=== PATIENT | female | born 1955 | race Caucasian/White ===

== ENCOUNTER 2022-11-21 13:11 | Emergency (ER) | payer OTHER ==
[~2022-11-21] VITALS: Wt 157.5 kg
[~2022-11-21 13:11] MED LIST: ACETAMINOPHEN325 M2 PO; ALBUTEROL0.63 MG/3 INH; ANTIFUNGAL POWD85 G1 T; ARTIFICIAL TEAR1512 OP; BISACODYL10 MG R; CELEXA20 MG PO; ERTAPENEM1 GM IV; FLEET ENEMA EX230 M1 R; JARDIANCE25 MG PO; LASIX20 MG PO; LEVOFLOXACIN750 M2 PO; METFORMIN HYDR500 MG PO; MOM30 M1 PO; PULMICORT0.5 MG/2 M INH; SALINE NOSE SPR45 ML NAS; Synthroid,Lev200 MCG PO; THERAPEUTIC T; TRULICITY3 MG/0.5 M SQ; ZYRTEC ALLERGY10 MG PO
[2022-11-21] MEDS ORDERED: ACETAZOLAMIDE250 MG PO (22:19)
[2022-11-29] MEDS ORDERED: PREMIERPRO RX500 M2 IV ×2 (15:20→18:25)
== END 2022-11-21 19:36 ==
LOC: ED 13:11
DX: J39.8 Other specified diseases of upper respiratory tract (principal); I50.9 Heart failure, unspecified; J44.9 Chronic obstructive pulmonary disease, unspecified; E11.9 Type 2 diabetes mellitus without complications; M19.90 Unspecified osteoarthritis, unspecified site; F32.A Depression, unspecified; F41.9 Anxiety disorder, unspecified; Z88.1 Allergy status to other antibiotic agents; Z88.8 Allergy status to other drugs, medicaments and biological substances

== ENCOUNTER 2022-11-21 21:58 | Inpatient (IN) | payer OTHER ==
[~2022-11-21] VITALS: Ht 167.6 cm; Wt 153.3 kg
[2022-11-21 22:09] VITALS: BP 115/57
[2022-11-21] MEDS ORDERED: ACETAZOLAMIDE250 MG PO (22:19)
[2022-11-22 01:54] VITALS: BP 121/61
[2022-11-22 04:30] VITALS: BP 110/45
[2022-11-22 05:38] LABS: ALKALINE PHOSPHATASE 265 U/L (46-116); BUN 9 mg/dl (9-23); CHLORIDE 97 mmol/L (98-107); POTASSIUM 3.7 mmol/L (3.4-5.1); SGPT/ALT 20 U/L (10-49); TOTAL PROTEIN 6.6 gm/dL (6.0-8.0)
[2022-11-22 06:37] LABS: BASO % 0.3 % (0.0-1.0); EOS # 0.1 10*3/uL (0.0-0.4); EOS % 0.8 % (1.0-4.0); HEMATOCRIT 38.2 % (37.0-47.0); LYMPH % 16.6 % (27.0-41.0); MEAN CELL VOLUME 102.1 fl (81.0-99.0); MEAN CORPUSCULAR HGB 29.4 pg (27.0-31.0); MEAN CORPUSCULAR HGB CONC 28.8 g/dl (33.0-37.0); MEAN PLATELET VOLUME 10.7 fl (9.6-12.3); MONO # 0.5 10*3/uL (0.1-1.0); MONO % 8.1 % (3.0-9.0); NEUT # 4.4 10*3/uL (2.3-7.9); NEUT % 73.9 % (47.0-73.0); PLATELET COUNT AUTOMATED 181 10*3/uL (130-400); RED BLOOD COUNT 3.74 10*6/uL (4.10-5.10); RED CELL DISTRI WIDTH 15.5 % (0-14.5); WHITE BLOOD COUNT 5.9 10*3/uL (4.8-10.8)
[2022-11-22 07:42] LABS: ABG BASE EXCESS 17.6 mmol/L (-2.0-2.0); ARTERIAL BLOOD GAS PH 7.367 (7.35-7.45)
[2022-11-22 08:00] VITALS: BP 126/53
[2022-11-22 12:00] VITALS: BP 134/47
[2022-11-22 16:00] VITALS: BP 136/52
[2022-11-22 20:00] VITALS: BP 151/61
[2022-11-23] VITALS: BP 137/50
[2022-11-23 04:00] VITALS: BP 134/47
[2022-11-23 04:34] LABS: BASO % 0.4 % (0.0-1.0); EOS # 0.1 10*3/uL (0.0-0.4); EOS % 2.2 % (1.0-4.0); HEMATOCRIT 35.7 % (37.0-47.0); LYMPH % 18.3 % (27.0-41.0); MEAN CELL VOLUME 101.7 fl (81.0-99.0); MEAN CORPUSCULAR HGB 29.3 pg (27.0-31.0); MEAN CORPUSCULAR HGB CONC 28.9 g/dl (33.0-37.0); MEAN PLATELET VOLUME 9.8 fl (9.6-12.3); MONO # 0.5 10*3/uL (0.1-1.0); MONO % 8.9 % (3.0-9.0); NEUT # 3.9 10*3/uL (2.3-7.9); NEUT % 69.8 % (47.0-73.0); PLATELET COUNT AUTOMATED 144 10*3/uL (130-400); RED BLOOD COUNT 3.51 10*6/uL (4.10-5.10); RED CELL DISTRI WIDTH 15.8 % (0-14.5); WHITE BLOOD COUNT 5.5 10*3/uL (4.8-10.8)
[2022-11-23 05:02] LABS: BUN 10 mg/dl (9-23); CHLORIDE 98 mmol/L (98-107); POTASSIUM 3.6 mmol/L (3.4-5.1)
[2022-11-23 08:00] VITALS: BP 148/66
[2022-11-23 12:00] VITALS: BP 136/86
[2022-11-23 16:00] VITALS: BP 134/84
[2022-11-23 20:00] VITALS: BP 132/59
[2022-11-24] VITALS: BP 141/53
[2022-11-24 04:00] VITALS: BP 134/50
[2022-11-24 06:26] LABS: ALKALINE PHOSPHATASE 262 U/L (46-116); BUN 12 mg/dl (9-23); CHLORIDE 95 mmol/L (98-107); POTASSIUM 3.6 mmol/L (3.4-5.1); SGPT/ALT 12 U/L (10-49); TOTAL PROTEIN 6.2 gm/dL (6.0-8.0)
[2022-11-24 06:44] LABS: BASO % 0.2 % (0.0-1.0); EOS # 0.1 10*3/uL (0.0-0.4); EOS % 1.7 % (1.0-4.0); HEMATOCRIT 35.3 % (37.0-47.0); LYMPH # 1.1 10*3/uL (1.3-4.4); LYMPH % 18.6 % (27.0-41.0); MEAN CELL VOLUME 99.4 fl (81.0-99.0); MEAN CORPUSCULAR HGB 29.6 pg (27.0-31.0); MEAN CORPUSCULAR HGB CONC 29.7 g/dl (33.0-37.0); MEAN PLATELET VOLUME 10.3 fl (9.6-12.3); MONO # 0.5 10*3/uL (0.1-1.0); MONO % 8.7 % (3.0-9.0); NEUT # 4.2 10*3/uL (2.3-7.9); NEUT % 70.3 % (47.0-73.0); PLATELET COUNT AUTOMATED 154 10*3/uL (130-400); RED BLOOD COUNT 3.55 10*6/uL (4.10-5.10); RED CELL DISTRI WIDTH 15.7 % (0-14.5)
[2022-11-24 08:00] VITALS: BP 141/56
== END 2022-11-24 11:24 | DRG 291 ==
LOC: ED 21:58 → EDHOLD 22:05 → ICCU 22:05 → EDHOLD 23:25 → ICCU 11-22 03:58
PROVIDERS: Internal Medicine; Internal Medicine Critical Care Medicine; Student in an Organized Health Care Education/Training Program; ADMIT Internal Medicine; ATTEND Internal Medicine
PROC: 5A1945Z Respiratory Ventilation, 24-96 Consecutive Hours (ICD-10-PCS; principal; 2022-11-21)
DX: I50.33 Acute on chronic diastolic (congestive) heart failure (principal); J96.21 Acute and chronic respiratory failure with hypoxia; J96.22 Acute and chronic respiratory failure with hypercapnia; E44.0 Moderate protein-calorie malnutrition; E87.3 Alkalosis; Z99.11 Dependence on respirator [ventilator] status; Z68.44 Body mass index [BMI] 60.0-69.9, adult; J39.8 Other specified diseases of upper respiratory tract; E66.01 Morbid (severe) obesity due to excess calories; E11.65 Type 2 diabetes mellitus with hyperglycemia; E11.22 Type 2 diabetes mellitus with diabetic chronic kidney disease; N18.31 Chronic kidney disease, stage 3a; E03.9 Hypothyroidism, unspecified; F32.A Depression, unspecified; E55.9 Vitamin D deficiency, unspecified; Z82.49 Family history of ischemic heart disease and other diseases of the circulatory system; Z88.8 Allergy status to other drugs, medicaments and biological substances; Z93.0 Tracheostomy status; Z88.1 Allergy status to other antibiotic agents; Z79.1 Long term (current) use of non-steroidal anti-inflammatories (NSAID); Z79.51 Long term (current) use of inhaled steroids; Z79.899 Other long term (current) drug therapy; Z99.3 Dependence on wheelchair

== ENCOUNTER 2022-12-03 15:12 | Emergency (ER) | payer OTHER ==
[~2022-12-03] VITALS: Wt 151.5 kg
[~2022-12-03 15:12] MED LIST changes: +ACETAZOLAMIDE250 MG PO; +PREMIERPRO RX500 M2 IV
== END 2022-12-03 16:32 | disposition home or self-care (01) ==
LOC: ED 15:12
DX: R06.03 Acute respiratory distress (principal); I50.9 Heart failure, unspecified; J44.9 Chronic obstructive pulmonary disease, unspecified; E11.9 Type 2 diabetes mellitus without complications; M19.90 Unspecified osteoarthritis, unspecified site; F32.A Depression, unspecified; F41.9 Anxiety disorder, unspecified; Z91.018 Allergy to other foods; Z88.1 Allergy status to other antibiotic agents; Z88.8 Allergy status to other drugs, medicaments and biological substances; Z98.890 Other specified postprocedural states

== ENCOUNTER 2022-12-04 01:13 | Emergency (ER) | payer OTHER ==
[~2022-12-04] VITALS: Ht 167.6 cm; Wt 170.1 kg
[2022-12-04 01:33] LABS: BASO % 0.5 % (0.0-1.0); EOS # 0.1 10*3/uL (0.0-0.4); EOS % 1.5 % (1.0-4.0); HEMATOCRIT 36.8 % (37.0-47.0); LYMPH # 0.9 10*3/uL (1.3-4.4); LYMPH % 16.2 % (27.0-41.0); MEAN CELL VOLUME 102.2 fl (81.0-99.0); MEAN CORPUSCULAR HGB 29.7 pg (27.0-31.0); MEAN CORPUSCULAR HGB CONC 29.1 g/dl (33.0-37.0); MEAN PLATELET VOLUME 9.6 fl (9.6-12.3); MONO # 0.4 10*3/uL (0.1-1.0); MONO % 6.4 % (3.0-9.0); NEUT # 4.1 10*3/uL (2.3-7.9); NEUT % 73.8 % (47.0-73.0); PLATELET COUNT AUTOMATED 243 10*3/uL (130-400); RED CELL DISTRI WIDTH 15.2 % (0-14.5); WHITE BLOOD COUNT 5.5 10*3/uL (4.8-10.8)
[2022-12-04 01:47] LABS: BUN 15 mg/dl (9-23); CHLORIDE 103 mmol/L (98-107); POTASSIUM 4.6 mmol/L (3.4-5.1)
== END 2022-12-04 04:13 ==
LOC: ED 01:13
PROVIDERS: Internal Medicine
DX: R06.00 Dyspnea, unspecified (principal); I13.0 Hypertensive heart and chronic kidney disease with heart failure and stage 1 through stage 4 chronic kidney disease, or unspecified chronic kidney disease; E11.22 Type 2 diabetes mellitus with diabetic chronic kidney disease; N18.31 Chronic kidney disease, stage 3a; I50.9 Heart failure, unspecified; D64.9 Anemia, unspecified; E87.29 Other acidosis; J44.9 Chronic obstructive pulmonary disease, unspecified; F32.A Depression, unspecified; F41.9 Anxiety disorder, unspecified; Z88.1 Allergy status to other antibiotic agents; Z91.018 Allergy to other foods; Z88.8 Allergy status to other drugs, medicaments and biological substances; Z98.890 Other specified postprocedural states

== ENCOUNTER 2022-12-31 09:57 | Emergency (ER) | payer OTHER ==
[~2022-12-31] VITALS: Wt 153.8 kg
[~2022-12-31 09:57] MED LIST changes: +BUSPIRONE10 MG PO; +CLARITIN10 MG PO; +OLOPATADINE HCL5 ML OU
[2022-12-31 10:16] LABS: BILIRUBIN Negative (Negative); BLOOD 3+ (Negative); CLARITY Clear (Clear); COLOR Yellow (Yellow); GLUCOSE Negative (Negative); KETONE Negative (Negative); LEUKO ESTERASE 2+ (Negative); NITRITE Negative (Negative); SPECIFIC GRAVITY 1.015 (1.001-1.030)
[2022-12-31 10:39] LABS: BACTERIA 1+; MUCOUS TRACE; RBC 51-100 rbc/hpf (0-2); WBC 51-100 wbc/hpf (0-5)
[2022-12-31 12:31] LABS: BASO % 0.3 % (0.0-1.0); EOS % 0.4 % (1.0-4.0); HEMATOCRIT 35.8 % (37.0-47.0); LYMPH # 0.5 10*3/uL (1.3-4.4); LYMPH % 6.8 % (27.0-41.0); MEAN CELL VOLUME 102.6 fl (81.0-99.0); MEAN CORPUSCULAR HGB 29.5 pg (27.0-31.0); MEAN CORPUSCULAR HGB CONC 28.8 g/dl (33.0-37.0); MEAN PLATELET VOLUME 9.9 fl (9.6-12.3); MONO # 0.4 10*3/uL (0.1-1.0); MONO % 4.9 % (3.0-9.0); NEUT # 6.4 10*3/uL (2.3-7.9); NEUT % 87.2 % (47.0-73.0); PLATELET COUNT AUTOMATED 145 10*3/uL (130-400); RED BLOOD COUNT 3.49 10*6/uL (4.10-5.10); RED CELL DISTRI WIDTH 15.2 % (0-14.5); WHITE BLOOD COUNT 7.3 10*3/uL (4.8-10.8)
[2022-12-31 13:02] LABS: ALKALINE PHOSPHATASE 347 U/L (46-116); BUN 15 mg/dl (9-23); CHLORIDE 100 mmol/L (98-107); SGPT/ALT 25 U/L (10-49); TOTAL PROTEIN 6.8 gm/dL (6.0-8.0)
[2022-12-31] MEDS ORDERED: LASIX40 MG PO (14:39)
== END 2022-12-31 16:55 ==
LOC: ED 09:57
PROVIDERS: Internal Medicine
DX: J96.02 Acute respiratory failure with hypercapnia (principal); I50.9 Heart failure, unspecified; J44.9 Chronic obstructive pulmonary disease, unspecified; E11.9 Type 2 diabetes mellitus without complications; F32.A Depression, unspecified; F41.9 Anxiety disorder, unspecified; Z88.1 Allergy status to other antibiotic agents; Z88.8 Allergy status to other drugs, medicaments and biological substances; Z98.890 Other specified postprocedural states

== ENCOUNTER 2023-06-28 19:03 | Emergency (ER) | payer OTHER ==
[~2023-06-28] VITALS: Ht 165.1 cm; Wt 167.4 kg
[~2023-06-28 19:03] MED LIST changes: +AMOXICILLIN500 M2 PO; +ARTIFICIAL TEA1 EAC1 OU; +CIPROFLOX-DEXA7.5 ML OT; +FLEET ENEMA 13133 ML R; +K-TAB20 MEQ PO; +LASIX40 MG PO; +MEROPENEM-500 MG/50 IV; +TERBINAFINE250 MG PO; +XANAX0.25 MG PO
== END 2023-06-28 21:10 ==
LOC: ED 19:03
DX: R79.81 Abnormal blood-gas level (principal); R06.02 Shortness of breath; E66.01 Morbid (severe) obesity due to excess calories; Z91.018 Allergy to other foods; Z88.1 Allergy status to other antibiotic agents; Z88.8 Allergy status to other drugs, medicaments and biological substances; Z79.899 Other long term (current) drug therapy; Z68.30 Body mass index [BMI] 30.0-30.9, adult; Z99.11 Dependence on respirator [ventilator] status

== ENCOUNTER 2023-07-19 14:10 | Inpatient (IN) | payer OTHER ==
[~2023-07-19] VITALS: Ht 165.1 cm; Wt 167.4 kg
[2023-07-19 14:52] LABS: BASO % 0.2 % (0.0-1.0); EOS # 0.1 10*3/uL (0.0-0.4); EOS % 1.5 % (1.0-4.0); HEMATOCRIT 29.4 % (37.0-47.0); LYMPH # 0.5 10*3/uL (1.3-4.4); LYMPH % 10.3 % (27.0-41.0); MEAN CELL VOLUME 104.6 fl (81.0-99.0); MEAN CORPUSCULAR HGB 29.5 pg (27.0-31.0); MEAN CORPUSCULAR HGB CONC 28.2 g/dl (33.0-37.0); MEAN PLATELET VOLUME 9.6 fl (9.6-12.3); MONO # 0.3 10*3/uL (0.1-1.0); NEUT # 4.2 10*3/uL (2.3-7.9); NEUT % 81.8 % (47.0-73.0); PLATELET COUNT AUTOMATED 157 10*3/uL (130-400); RED BLOOD COUNT 2.81 10*6/uL (4.10-5.10); WHITE BLOOD COUNT 5.2 10*3/uL (4.8-10.8)
[2023-07-19 15:07] VITALS: BP 156/77
[2023-07-19 15:07] LABS: BILIRUBIN Negative (Negative); BLOOD Trace-Lysed (Negative); CLARITY Cloudy (Clear); COLOR Yellow (Yellow); GLUCOSE Negative (Negative); KETONE Negative (Negative); LEUKO ESTERASE 3+ (Negative); NITRITE Positive (Negative); PH 7.5 (4.5-8.0); UROBILINOGEN 0.2 E.U./dl (0.0-1.0)
[2023-07-19 15:10] LABS: TOTAL PROTEIN 6.8 gm/dL (6.0-8.0)
[2023-07-19 15:26] LABS: BACTERIA 4+; WBC 51-100 wbc/hpf (0-5)
[2023-07-19] MEDS ORDERED: PROVENTIL HFA6.7 GM INH (17:02)
[2023-07-19] MEDS ORDERED: PULMICORT RESP0.5 M1 INH (17:03)
[2023-07-19] MEDS ORDERED: BUSPIRONE HCL10 MG PO (17:03)
[2023-07-19] MEDS ORDERED: CELEXA20 MG PO (17:04)
[2023-07-19] MEDS ORDERED: LASIX40 MG PO (17:04)
[2023-07-19] MEDS ORDERED: LEVOTHYROXINE200 MC2 PO (17:05)
[2023-07-19] MEDS ORDERED: CLARITIN10 MG PO (17:05)
[2023-07-19] MEDS ORDERED: MICONAZOLE NIT130 GM T (17:06)
[2023-07-19] MEDS ORDERED: KLOR-CON M2020 ME1 PO (17:07)
[2023-07-19 20:15] VITALS: BP 141/45
[2023-07-19 21:52] VITALS: BP 153/49
[2023-07-19 23:02] VITALS: BP 150/46
[2023-07-20] VITALS (11 sets, daily range): BP systolic 112–169; BP diastolic 32–61
[2023-07-20 03:42] LABS: BASO % 0.2 % (0.0-1.0); HEMATOCRIT 31.4 % (37.0-47.0); LYMPH # 0.4 10*3/uL (1.3-4.4); LYMPH % 8.1 % (27.0-41.0); MEAN CORPUSCULAR HGB 28.8 pg (27.0-31.0); MEAN CORPUSCULAR HGB CONC 28.7 g/dl (33.0-37.0); MEAN PLATELET VOLUME 9.5 fl (9.6-12.3); MONO # 0.1 10*3/uL (0.1-1.0); MONO % 1.4 % (3.0-9.0); NEUT # 4.5 10*3/uL (2.3-7.9); NEUT % 89.1 % (47.0-73.0); PLATELET COUNT AUTOMATED 176 10*3/uL (130-400); RED BLOOD COUNT 3.12 10*6/uL (4.10-5.10); RED CELL DISTRI WIDTH 15.9 % (0-14.5); WHITE BLOOD COUNT 5.1 10*3/uL (4.8-10.8)
[2023-07-20 04:05] LABS: TOTAL PROTEIN 7.6 gm/dL (6.0-8.0)
[2023-07-20 04:13] LABS: MEAN CELL VOLUME 100.6 fl (81.0-99.0)
[2023-07-21 03:34] VITALS: BP 140/42
[2023-07-21 08:13] VITALS: BP 130/30
[2023-07-21] MEDS ORDERED: KLOR-CON M1010 ME1 PO (13:14)
[2023-07-21] MEDS ORDERED: Ipratropium Brom3 ML NEB (13:14)
== END 2023-07-21 17:26 | DRG 208 ==
LOC: ED 14:10 → EDHOLD 17:11
PROVIDERS: Family Medicine; ADMIT Internal Medicine; ATTEND Internal Medicine
PROC: 5A1945Z Respiratory Ventilation, 24-96 Consecutive Hours (ICD-10-PCS; principal; 2023-07-19)
DX: J96.21 Acute and chronic respiratory failure with hypoxia (principal); J44.1 Chronic obstructive pulmonary disease with (acute) exacerbation; N39.0 Urinary tract infection, site not specified; J91.8 Pleural effusion in other conditions classified elsewhere; N17.9 Acute kidney failure, unspecified; E87.3 Alkalosis; Z99.11 Dependence on respirator [ventilator] status; Z68.44 Body mass index [BMI] 60.0-69.9, adult; J96.22 Acute and chronic respiratory failure with hypercapnia; J20.5 Acute bronchitis due to respiratory syncytial virus; E87.6 Hypokalemia; N18.30 Chronic kidney disease, stage 3 unspecified; B96.89 Other specified bacterial agents as the cause of diseases classified elsewhere; I50.9 Heart failure, unspecified; E55.9 Vitamin D deficiency, unspecified; F32.A Depression, unspecified; E03.9 Hypothyroidism, unspecified; F41.9 Anxiety disorder, unspecified; E66.01 Morbid (severe) obesity due to excess calories; E11.22 Type 2 diabetes mellitus with diabetic chronic kidney disease; Z88.1 Allergy status to other antibiotic agents; Z88.8 Allergy status to other drugs, medicaments and biological substances; Z98.890 Other specified postprocedural states; Z82.49 Family history of ischemic heart disease and other diseases of the circulatory system; Z93.0 Tracheostomy status

== ENCOUNTER 2023-07-28 05:44 | Emergency (ER) | payer OTHER ==
[~2023-07-28 05:44] MED LIST changes: +BUSPIRONE HCL10 MG PO; +Ipratropium Brom3 ML NEB; +KLOR-CON M1010 ME1 PO; +KLOR-CON M2020 ME1 PO; +LEVOTHYROXINE200 MC2 PO; +MICONAZOLE NIT130 GM T; +PROVENTIL HFA6.7 GM INH; +PULMICORT RESP0.5 M1 INH
[2023-07-28 06:09] LABS: BILIRUBIN Negative (Negative); BLOOD 2+ (Negative); CLARITY Turbid (Clear); COLOR Yellow (Yellow); GLUCOSE Negative (Negative); KETONE Negative (Negative); LEUKO ESTERASE 3+ (Negative); NITRITE Positive (Negative); PH 6.5 (4.5-8.0); SPECIFIC GRAVITY 1.015 (1.001-1.030); UROBILINOGEN 0.2 E.U./dl (0.0-1.0)
[2023-07-28 06:18] LABS: BACTERIA 4+; EPITHELIAL CELLS 16-20; WBC TNTC wbc/hpf (0-5)
[2023-07-28 06:36] LABS: BASO % 0.2 % (0.0-1.0); EOS # 0.1 10*3/uL (0.0-0.4); EOS % 1.2 % (1.0-4.0); HEMATOCRIT 33.2 % (37.0-47.0); LYMPH # 1.1 10*3/uL (1.3-4.4); LYMPH % 11.1 % (27.0-41.0); MEAN CELL VOLUME 103.8 fl (81.0-99.0); MEAN CORPUSCULAR HGB 29.1 pg (27.0-31.0); MEAN PLATELET VOLUME 10.9 fl (9.6-12.3); MONO # 0.5 10*3/uL (0.1-1.0); MONO % 5.5 % (3.0-9.0); NEUT # 7.7 10*3/uL (2.3-7.9); NEUT % 81.4 % (47.0-73.0); PLATELET COUNT AUTOMATED 193 10*3/uL (130-400); WHITE BLOOD COUNT 9.5 10*3/uL (4.8-10.8)
[2023-07-28 06:40] LABS: ACT PARTIAL THROMBO TIME 30.8 SECONDS (20.0-32.1)
[2023-07-28 06:52] LABS: POTASSIUM 4.5 mmol/L (3.4-5.1); TOTAL PROTEIN 7.5 gm/dL (6.0-8.0)
[2023-07-28] MEDS ORDERED: PREDNISONE50 MG PO (12:42)
[2023-07-28] MEDS ORDERED: FOSFOMYCIN TROME3 GM PO (12:42)
[2023-07-28] MEDS ORDERED: MUCINEX1200 M1 PO (12:42)
[2023-08-03] MEDS ORDERED: XANAX0.25 MG PO (09:57)
== END 2023-07-28 13:25 ==
LOC: ED 05:44
PROVIDERS: Internal Medicine
DX: N39.0 Urinary tract infection, site not specified (principal); T17.990A Other foreign object in respiratory tract, part unspecified in causing asphyxiation, initial encounter; I50.9 Heart failure, unspecified; J44.9 Chronic obstructive pulmonary disease, unspecified; E11.9 Type 2 diabetes mellitus without complications; F32.A Depression, unspecified; F41.9 Anxiety disorder, unspecified; Z88.8 Allergy status to other drugs, medicaments and biological substances; Z88.1 Allergy status to other antibiotic agents; Z98.890 Other specified postprocedural states; Z20.822 Contact with and (suspected) exposure to COVID-19; W44.F9XA Other object of natural or organic material, entering into or through a natural orifice, initial encounter; Y93.89 Activity, other specified; Y92.89 Other specified places as the place of occurrence of the external cause; Y99.8 Other external cause status

== ENCOUNTER 2023-09-12 16:06 | Inpatient (IN) | payer OTHER ==
[~2023-09-12] VITALS: Ht 162.5 cm; Wt 156.5 kg
[~2023-09-12 16:06] MED LIST changes: +FOSFOMYCIN TROME3 GM PO; +Lasix80 MG PO; +MUCINEX1200 M1 PO; +PREDNISONE50 MG PO
[2023-09-12] MEDS ORDERED: SODIUM CHLORIDE 0.9% 1,000 ML IV ONE ×2 (16:10→23:35)
[2023-09-12] MEDS ORDERED: Ondansetron Hydrochloride 4 MG/2 ML VIAL IV ONE ×2 (16:10→17:25)
[2023-09-12] MEDS ORDERED: Pantoprazole Sodium 40 MG VIAL IV ONE (16:10)
[2023-09-12] MEDS ORDERED: Promethazine Hydrochloride 25 MG/ML VIAL IV ONE (16:15)
[2023-09-12 16:28] VITALS: BP 160/52
[2023-09-12 17:05] LABS: HEMATOCRIT 33.2 % (37.0-47.0); MANUAL DIFF REFLEX YES; MEAN CELL VOLUME 96.5 fl (81.0-99.0); MEAN CORPUSCULAR HGB 29.4 pg (27.0-31.0); MEAN CORPUSCULAR HGB CONC 30.4 g/dl (33.0-37.0); MEAN PLATELET VOLUME 11.7 fl (9.6-12.3); PLATELET COUNT AUTOMATED 95 10*3/uL (130-400); RED BLOOD COUNT 3.44 10*6/uL (4.10-5.10); RED CELL DISTRI WIDTH 16.4 % (0-14.5); WHITE BLOOD COUNT 12.4 10*3/uL (4.8-10.8)
[2023-09-12 17:14] LABS: ACT PARTIAL THROMBO TIME 27.2 SECONDS (20.0-32.1)
[2023-09-12 17:28] LABS: ALKALINE PHOSPHATASE 224 U/L (46-116); BUN 35 mg/dl (9-23); CHLORIDE 106 mmol/L (98-107); LIPASE 66 U/L (12-53); POTASSIUM 3.3 mmol/L (3.4-5.1); TOTAL PROTEIN 7.1 gm/dL (6.0-8.0)
[2023-09-12 17:29] LABS: SGPT/ALT < 7 U/L (5-49)
[2023-09-12 17:39] LABS: TOTAL CELLS COUNTED 100 #CELLS
[2023-09-12 17:40] LABS: PLATELET SUFFICIENCY LOW (NORMAL); POLYCHROMASIA SLIGHT; SPHEROCYTES FEW; STOMATOCYTE FEW
[2023-09-12] MEDS ORDERED: diphenhydrAMINE hydrochloride 50 MG/ML VIAL IV ONE (20:00)
[2023-09-12 20:55] VITALS: BP 146/55
[2023-09-12] MEDS ORDERED: MORPHINE Sulfate 2 MG/ML SYR IV PRN (23:35)
[2023-09-12] MEDS ORDERED: Ondansetron Hydrochloride 4 MG/2 ML VIAL IV PRN (23:35)
[2023-09-13 00:24] VITALS: BP 158/60
[2023-09-13 00:28] LABS: BILIRUBIN Negative (Negative); BLOOD 2+ (Negative); CLARITY Turbid (Clear); COLOR Yellow (Yellow); GLUCOSE Negative (Negative); KETONE Trace (Negative); LEUKO ESTERASE 3+ (Negative); NITRITE Negative (Negative); PH 5.5 (4.5-8.0); SPECIFIC GRAVITY 1.015 (1.001-1.030); UROBILINOGEN 0.2 E.U./dl (0.0-1.0)
[2023-09-13 01:01] LABS: BACTERIA 4+; WBC 41-50 wbc/hpf (0-5); YEAST 3+
[2023-09-13 01:30] VITALS: BP 156/57
[2023-09-13] MEDS ORDERED: ACETADOTE200 MG/1 M INH (03:19)
[2023-09-13] MEDS ORDERED: MIRALAX119 GM PO (03:24)
[2023-09-13] MEDS ORDERED: ANTI-FUNGAL POW71 GM T (03:39)
[2023-09-13] MEDS ORDERED: MILK OF MA2400 MG/11 PO (03:40)
[2023-09-13] MEDS ORDERED: PROCARDIA XL90 MG PO (03:42)
[2023-09-13] MEDS ORDERED: SENNA-PLUS TAB1 EACH PO (03:43)
[2023-09-13] MEDS ORDERED: SODIUM CHLORIDE INH (03:44)
[2023-09-13] MEDS ORDERED: LEVOTHYROXINE25 MCG PO (03:45)
[2023-09-13] MEDS ORDERED: Ondansetron8 MG PO (03:46)
[2023-09-13 04:00] VITALS: BP 141/58
[2023-09-13 06:16] LABS: HEMATOCRIT 29.9 % (37.0-47.0); MEAN CELL VOLUME 97.4 fl (81.0-99.0); MEAN CORPUSCULAR HGB 29.3 pg (27.0-31.0); MEAN CORPUSCULAR HGB CONC 30.1 g/dl (33.0-37.0); MEAN PLATELET VOLUME 11.9 fl (9.6-12.3); PLATELET COUNT AUTOMATED 88 10*3/uL (130-400); RED BLOOD COUNT 3.07 10*6/uL (4.10-5.10); RED CELL DISTRI WIDTH 16.3 % (0-14.5); WHITE BLOOD COUNT 13.6 10*3/uL (4.8-10.8)
[2023-09-13 06:17] LABS: MANUAL DIFF REFLEX YES
[2023-09-13 06:41] LABS: ALKALINE PHOSPHATASE 188 U/L (46-116); BUN 33 mg/dl (9-23); CHLORIDE 109 mmol/L (98-107); POTASSIUM 3.6 mmol/L (3.4-5.1)
[2023-09-13 06:42] LABS: SGPT/ALT < 7 U/L (5-49)
[2023-09-13 07:20] LABS: PLATELET SUFFICIENCY LOW (NORMAL); POLYCHROMASIA SLIGHT; TOTAL CELLS COUNTED 100 #CELLS
[2023-09-13 07:22] LABS: SPHEROCYTES FEW
[2023-09-13] MEDS ORDERED: Menthol/Zinc Oxide 4 GM THIN T PRN (09:55)
[2023-09-13] MEDS ORDERED: Enoxaparin Sodium 40 MG/0.4 ML SYR SC SCH ×2 (10:00)
[2023-09-13] MEDS ORDERED: NYSTATIN 15 GM BOT T SCH (10:00)
[2023-09-13] MEDS ORDERED: Menthol/Zinc Oxide 4 GM THIN T SCH (10:00)
[2023-09-13] MEDS ORDERED: Menthol/Zinc Oxide 113 GM THIN T SCH (11:21)
[2023-09-13 12:00] VITALS: BP 139/55
[2023-09-13] MEDS ORDERED: Albuterol Sulf/Ipratropium 3 ML VIAL NEB SCH (12:15)
[2023-09-13] MEDS ORDERED: BUDESONIDE 0.5 MG AMP NEB PRN (12:15)
[2023-09-13 16:00] VITALS: BP 149/52
[2023-09-13 20:00] VITALS: BP 147/43
[2023-09-13] MEDS ORDERED: NYSTATIN OINTMENT 15 GM TUBE T SCH (22:00)
[2023-09-14] VITALS: BP 130/54
[2023-09-14 04:00] VITALS: BP 112/36
[2023-09-14 05:59] LABS: EOS # 0.1 10*3/uL (0.0-0.4); EOS % 0.6 % (1.0-4.0); HEMATOCRIT 30.3 % (37.0-47.0); LYMPH # 0.7 10*3/uL (1.3-4.4); MEAN CORPUSCULAR HGB 29.2 pg (27.0-31.0); MEAN PLATELET VOLUME 12.1 fl (9.6-12.3); MONO # 0.7 10*3/uL (0.1-1.0); MONO % 6.7 % (3.0-9.0); NEUT % 84.9 % (47.0-73.0); PLATELET COUNT AUTOMATED 103 10*3/uL (130-400); RED BLOOD COUNT 3.01 10*6/uL (4.10-5.10); RED CELL DISTRI WIDTH 16.9 % (0-14.5); WHITE BLOOD COUNT 10.6 10*3/uL (4.8-10.8)
[2023-09-14 06:45] LABS: MEAN CELL VOLUME 100.7 fl (81.0-99.0)
[2023-09-14 07:00] LABS: ALKALINE PHOSPHATASE 204 U/L (46-116); BUN 32 mg/dl (9-23); CHLORIDE 109 mmol/L (98-107); POTASSIUM 3.3 mmol/L (3.4-5.1); TOTAL PROTEIN 6.2 gm/dL (6.0-8.0)
[2023-09-14 07:01] LABS: SGPT/ALT < 7 U/L (5-49)
[2023-09-14] MEDS ORDERED: BUDESONIDE 0.5 MG AMP NEB SCH (07:31)
[2023-09-14 08:00] VITALS: BP 107/67
[2023-09-14 12:00] VITALS: BP 94/46
[2023-09-14 16:00] VITALS: BP 103/63
[2023-09-14] MEDS ORDERED: Ondansetron Hydrochloride 4 MG/2 ML VIAL IV PRN (16:06)
[2023-09-14] MEDS ORDERED: POTASSIUM CH/0.45 NS 1,000 ML IV SCH (18:15)
[2023-09-14] MEDS ORDERED: POTASSIUM CH/0.45 NS 1,000 ML IV ONE (19:38)
[2023-09-14 20:00] VITALS: BP 154/37
[2023-09-14] MEDS ORDERED: FLUCONAZOLE 100 ML IV SCH (22:00)
[2023-09-15] VITALS: BP 129/37
[2023-09-15 04:00] VITALS: BP 95/49
[2023-09-15 06:08] LABS: BASO % 0.1 % (0.0-1.0); EOS # 0.1 10*3/uL (0.0-0.4); EOS % 0.8 % (1.0-4.0); HEMATOCRIT 28.9 % (37.0-47.0); LYMPH # 0.7 10*3/uL (1.3-4.4); LYMPH % 8.7 % (27.0-41.0); MEAN CELL VOLUME 101.4 fl (81.0-99.0); MEAN CORPUSCULAR HGB 29.5 pg (27.0-31.0); MEAN CORPUSCULAR HGB CONC 29.1 g/dl (33.0-37.0); MEAN PLATELET VOLUME 11.9 fl (9.6-12.3); MONO # 0.6 10*3/uL (0.1-1.0); MONO % 7.5 % (3.0-9.0); NEUT % 82.1 % (47.0-73.0); PLATELET COUNT AUTOMATED 112 10*3/uL (130-400); RED BLOOD COUNT 2.85 10*6/uL (4.10-5.10); RED CELL DISTRI WIDTH 17.1 % (0-14.5); WHITE BLOOD COUNT 8.5 10*3/uL (4.8-10.8)
[2023-09-15 06:12] LABS: ALKALINE PHOSPHATASE 227 U/L (46-116); BUN 29 mg/dl (9-23); CHLORIDE 109 mmol/L (98-107); POTASSIUM 4.3 mmol/L (3.4-5.1); SGPT/ALT < 7 U/L (5-49)
[2023-09-15 08:00] VITALS: BP 114/45
[2023-09-15] MEDS ORDERED: Enoxaparin Sodium 30 MG/0.3 ML SYR SC SCH (10:00)
[2023-09-15 12:00] VITALS: BP 141/48
[2023-09-15 16:00] VITALS: BP 114/40
[2023-09-15 20:00] VITALS: BP 94/34
[2023-09-15] MEDS ORDERED: HEPARIN SODIUM 5,000 UNIT/ML VIAL SC SCH (22:00)
[2023-09-15] MEDS ORDERED: HEPARIN SODIUM 5,000 UNIT/ML VIAL ONE (23:11)
[2023-09-16] VITALS: BP 97/49
[2023-09-16 04:00] VITALS: BP 113/29
[2023-09-16 06:03] LABS: BASO % 0.1 % (0.0-1.0); EOS # 0.1 10*3/uL (0.0-0.4); EOS % 0.8 % (1.0-4.0); HEMATOCRIT 28.5 % (37.0-47.0); LYMPH # 0.7 10*3/uL (1.3-4.4); LYMPH % 8.9 % (27.0-41.0); MEAN CELL VOLUME 101.4 fl (81.0-99.0); MEAN CORPUSCULAR HGB 29.5 pg (27.0-31.0); MEAN CORPUSCULAR HGB CONC 29.1 g/dl (33.0-37.0); MEAN PLATELET VOLUME 11.5 fl (9.6-12.3); MONO # 0.5 10*3/uL (0.1-1.0); MONO % 7.2 % (3.0-9.0); NEUT # 6.2 10*3/uL (2.3-7.9); NEUT % 82.2 % (47.0-73.0); PLATELET COUNT AUTOMATED 126 10*3/uL (130-400); RED BLOOD COUNT 2.81 10*6/uL (4.10-5.10); RED CELL DISTRI WIDTH 17.2 % (0-14.5); WHITE BLOOD COUNT 7.5 10*3/uL (4.8-10.8)
[2023-09-16 06:15] LABS: POTASSIUM 4.1 mmol/L (3.4-5.1)
[2023-09-16 08:00] VITALS: BP 118/67; BP 143/34
[2023-09-16] MEDS ORDERED: ALPRAZolam 0.25 MG TAB PO PRN (10:35)
[2023-09-16 12:00] VITALS: BP 150/43
[2023-09-16] MEDS ORDERED: FOAM BANDAGE 4X4 T ONE (15:57)
[2023-09-16 16:00] VITALS: BP 151/34
[2023-09-16 20:00] VITALS: BP 142/37
[2023-09-17] VITALS: BP 139/35
[2023-09-17 04:00] VITALS: BP 143/38
[2023-09-17 06:11] LABS: POTASSIUM 3.5 mmol/L (3.4-5.1); TOTAL PROTEIN 6.5 gm/dL (6.0-8.0)
[2023-09-17 06:14] LABS: BASO % 0.2 % (0.0-1.0); EOS # 0.1 10*3/uL (0.0-0.4); LYMPH # 0.6 10*3/uL (1.3-4.4); LYMPH % 9.4 % (27.0-41.0); MEAN CORPUSCULAR HGB 29.3 pg (27.0-31.0); MEAN PLATELET VOLUME 11.3 fl (9.6-12.3); MONO # 0.4 10*3/uL (0.1-1.0); MONO % 6.4 % (3.0-9.0); NEUT # 5.2 10*3/uL (2.3-7.9); NEUT % 82.5 % (47.0-73.0); PLATELET COUNT AUTOMATED 136 10*3/uL (130-400); RED BLOOD COUNT 2.97 10*6/uL (4.10-5.10); WHITE BLOOD COUNT 6.3 10*3/uL (4.8-10.8)
[2023-09-17 08:00] VITALS: BP 133/26
[2023-09-17] MEDS ORDERED: Albuterol Sulfate 2.5 MG/3 ML VIAL NEB PRN (09:30)
[2023-09-17 12:00] VITALS: BP 115/40
[2023-09-17 15:49] VITALS: BP 118/42
== END 2023-09-17 18:51 | disposition short-term general hospital (02) | DRG 388 ==
LOC: ED 16:06 → ICCU 23:21 → EDHOLD 23:21 → ICCU 09-13 00:04
PROVIDERS: Emergency Medicine; Internal Medicine; ADMIT Internal Medicine; ATTEND Internal Medicine
PROC: 5A1955Z Respiratory Ventilation, Greater than 96 Consecutive Hours (ICD-10-PCS; 2023-09-12)
PROC: 0D9670Z Drainage of Stomach with Drainage Device, Via Natural or Artificial Opening (ICD-10-PCS; principal; 2023-09-13)
DX: K56.609 Unspecified intestinal obstruction, unspecified as to partial versus complete obstruction (principal); J69.0 Pneumonitis due to inhalation of food and vomit; N17.0 Acute kidney failure with tubular necrosis; J96.11 Chronic respiratory failure with hypoxia; J96.12 Chronic respiratory failure with hypercapnia; I13.0 Hypertensive heart and chronic kidney disease with heart failure and stage 1 through stage 4 chronic kidney disease, or unspecified chronic kidney disease; N18.4 Chronic kidney disease, stage 4 (severe); Z68.43 Body mass index [BMI] 50.0-59.9, adult; I50.9 Heart failure, unspecified; I25.10 Atherosclerotic heart disease of native coronary artery without angina pectoris; E11.65 Type 2 diabetes mellitus with hyperglycemia; D72.829 Elevated white blood cell count, unspecified; E11.22 Type 2 diabetes mellitus with diabetic chronic kidney disease; E66.01 Morbid (severe) obesity due to excess calories; E03.9 Hypothyroidism, unspecified; F32.A Depression, unspecified; F41.9 Anxiety disorder, unspecified; D64.9 Anemia, unspecified; E55.9 Vitamin D deficiency, unspecified; S70.12XA Contusion of left thigh, initial encounter; L30.8 Other specified dermatitis; L89.892 Pressure ulcer of other site, stage 2; E80.6 Other disorders of bilirubin metabolism; S90.111A Contusion of right great toe without damage to nail, initial encounter; E87.6 Hypokalemia; Z97.8 Presence of other specified devices; Z88.1 Allergy status to other antibiotic agents; Z88.8 Allergy status to other drugs, medicaments and biological substances; Z82.49 Family history of ischemic heart disease and other diseases of the circulatory system; Z93.0 Tracheostomy status; X58.XXXA Exposure to other specified factors, initial encounter; Y93.89 Activity, other specified; Y92.89 Other specified places as the place of occurrence of the external cause; Y99.8 Other external cause status

== ENCOUNTER 2023-10-01 17:23 | Emergency (ER) | payer OTHER ==
[~2023-10-01] VITALS: Wt 155.6 kg
[~2023-10-01 17:23] MED LIST changes: +ACETADOTE200 MG/1 M INH; +ANTI-FUNGAL POW71 GM T; +LEVOTHYROXINE25 MCG PO; +MILK OF MA2400 MG/11 PO; +MIRALAX119 GM PO; +Ondansetron8 MG PO; +PROCARDIA XL90 MG PO; +SENNA-PLUS TAB1 EACH PO; +SODIUM CHLORIDE INH
[2023-10-01 17:50] LABS: BASO % 0.2 % (0.0-1.0); EOS % 0.2 % (1.0-4.0); HEMATOCRIT 29.9 % (37.0-47.0); LYMPH # 1.3 10*3/uL (1.3-4.4); MEAN CELL VOLUME 102.4 fl (81.0-99.0); MEAN CORPUSCULAR HGB 30.1 pg (27.0-31.0); MEAN CORPUSCULAR HGB CONC 29.4 g/dl (33.0-37.0); MEAN PLATELET VOLUME 10.7 fl (9.6-12.3); MONO # 0.6 10*3/uL (0.1-1.0); NEUT # 10.1 10*3/uL (2.3-7.9); PLATELET COUNT AUTOMATED 222 10*3/uL (130-400); RED BLOOD COUNT 2.92 10*6/uL (4.10-5.10); RED CELL DISTRI WIDTH 18.5 % (0-14.5); WHITE BLOOD COUNT 12.2 10*3/uL (4.8-10.8)
[2023-10-01 18:11] LABS: POTASSIUM 4.3 mmol/L (3.4-5.1)
[2023-10-01 19:42] LABS: BILIRUBIN Negative (Negative); BLOOD 1+ (Negative); CLARITY Turbid (Clear); COLOR Yellow (Yellow); GLUCOSE Negative (Negative); KETONE Negative (Negative); LEUKO ESTERASE 3+ (Negative); NITRITE Negative (Negative); PH 7.5 (4.5-8.0); SPECIFIC GRAVITY 1.015 (1.001-1.030)
[2023-10-01 19:53] LABS: BACTERIA 2+; WBC TNTC wbc/hpf (0-5)
[2023-10-01] MEDS ORDERED: Piperacillin Sodium/Tazobact 50 ML IV ONE (20:00)
== END 2023-10-01 21:27 ==
LOC: ED 17:23
PROVIDERS: Internal Medicine
DX: R06.03 Acute respiratory distress (principal); R79.82 Elevated C-reactive protein (CRP); D72.829 Elevated white blood cell count, unspecified; D53.9 Nutritional anemia, unspecified; N18.4 Chronic kidney disease, stage 4 (severe); I50.9 Heart failure, unspecified; R06.02 Shortness of breath; J44.9 Chronic obstructive pulmonary disease, unspecified; F32.A Depression, unspecified; F41.9 Anxiety disorder, unspecified; Z91.018 Allergy to other foods; Z88.1 Allergy status to other antibiotic agents; Z88.8 Allergy status to other drugs, medicaments and biological substances; Z98.890 Other specified postprocedural states